=== PATIENT | male | born 1950 | race Caucasian/White ===

== ENCOUNTER 2020-06-14 14:24 | Emergency (ER) | payer OTHER, BC ==
[2020-06-14] MEDS ORDERED: CASIRIVIMAB (REGN10933) 1,200 MG, IMDEVIMAB (REGN10987) 1,200 MG in SODIUM CHLORIDE 230 ML IVPB ONE (15:04)
[2020-06-14 15:08] VITALS: BP 106/65; PULSE 85; TEMP 98.5; BMI 49.1
[2020-06-14 16:36] LABS: POTASSIUM 4.2 mmol/L (3.5-5.1)
[2020-06-14 16:37] LABS: HEMATOCRIT 45.1 % (35.4-49); HEMOGLOBIN 15.2 GM/dL (11.7-16.9); MCH 32.6 pg (25.7-33.7); MCHC 33.6 g/dl (32.0-35.9); MEAN CELL VOLUME 97.1 fl (80-96); MEAN PLT VOLUME 10.4 fl (7.5-11.1); PLATELET COUNT 122 K/MM3 (134-434); RBC 4.64 M/mm3 (4.00-5.60); RDW 13.6 % (11.9-15.9); WHITE BLOOD COUNT 3.8 K/mm3 (4.0-10.0)
== END 2020-06-14 18:25 | disposition home or self-care (01) ==
LOC: JER 14:24 → JCOVINFU 14:24
DX: U07.1 COVID-19 (principal)
CPT/HCPCS: 36415; 80048; 82728; 83615; 85027; 86140; 99284-25; M0243; Q0243